=== PATIENT | male | born 1990 | race Two or more races ===

== ENCOUNTER 2017-11-27 15:53 | Observation (INO) | payer OTHER ==
--- NOTE | 2017-11-27 15:57 | PDOC ---
History of Present Illness - General Chief Complaint: Alcohol intoxication Stated Complaint: INTOX Time Seen by Provider: 11/27/17 15:57 History Source: Patient, EMS Exam Limitations: Intoxication - History of Present Illness Initial Comments: 11/27/17 16:16 27 year old male BIBA for intoxication. Per EMS pt [place] side [place] upon arrival, minimally responsive, pt was given narcan without any change in symptoms. Pt states he has taken "marijuana, PCP and crack". Pt does not want to cooperate with medical evaluation. Past History - Past Medical History Allergies/Adverse Reactions: Allergies Allergy/AdvReac Type Severity Reaction Status Date / Time No Known Allergies Allergy Verified 11/27/17 17:16 Home Medications: Ambulatory Orders NK [No Known Home Medication] 11/27/17 Review of Systems - Review of Systems Able to Perform ROS?: No Comments:: 11/27/17 16:17 Pt is intoxicated and does not want to participate with medical evaluation *Physical Exam - Physical Exam Comments: 11/27/17 16:18 Constitutional: Well-nourished, Well-developed, appearing stated age. anxious. walking around the room attempting to pull out his IV. HEENT: head is normocephalic, atraumatic. EOMI. PERRLA. Neck: supple. Full ROM. Heart: regular rhythm. no murmurs, rubs or gallops. Lungs: clear to auscultation bilaterally. no crackles, rhonchi or wheezing. no stridor. Abdomen: soft, nontender. normal bowel sounds. no rebound, guarding, masses. Extremities: Peripheral pulses intact. No lower extremity edema. Neurological: CN 2-12 grossly intact. Moves all four extremities. Psych: awake, alert, oriented x3. Does not follow commands. Answers questions appropriately. aggressive. agitated. ED Treatment Course - LABORATORY CBC & Chemistry Diagram: 11/27/17 17:45 11/27/17 17:45 Medical Decision Making - Medical Decision Making 11/27/17 16:20 27 year old male BIBA for intoxication. Pt is aggressive, walking around the ED, pulled out his IV that was placed by EMS. IM versed 1 mg given. IM haldol 5 mg given. Initial Vital Signs Temp Pulse Resp BP Pulse Ox 97 F L 90 16 150/70 100 11/27/17 16:00 11/27/17 16:00 11/27/17 16:00 11/27/17 16:00 11/27/17 16:00 Afebrile. No tachycardia. No tachypnea. Hypertensive - Likely secondary to agitation No hypoxia on room air. Pending intoxication labs and EKG once patient is calm and cooperative. 11/27/17 17:00 Pt still combative. IM ativan 1 mg given. 11/27/17 17:48 Pt reassessed. Sleeping comfortably. Will arouse to physical stimulation. 11/27/17 18:07 Pt reassessed. Sleeping comfortably. 11/27/17 18:26 CBC WBC 7.4 K/mm3 (4.0-10.0) 11/27/17 17:45 RBC 4.95 M/mm3 (4.00-5.60) 11/27/17 17:45 Hgb 14.6 GM/dL (11.7-16.9) 11/27/17 17:45 Hct 44.1 % (35.4-49) 11/27/17 17:45 MCV 89.1 fl (80-96) 11/27/17 17:45 MCH 29.4 pg (25.7-33.7) 11/27/17 17:45 MCHC 33.0 g/dl (32.0-35.9) 11/27/17 17:45 RDW 14.6 % (11.9-15.9) 11/27/17 17:45 Plt Count 345 K/MM3 (134-434) 11/27/17 17:45 MPV 9.4 fl (7.5-11.1) 11/27/17 17:45 Absolute Neuts (auto) 3.5 K/mm3 (1.5-8.0) 11/27/17 17:45 Neutrophils % 47.4 % (42.8-82.8) 11/27/17 17:45 Lymphocytes % 40.2 % (8-40) H 11/27/17 17:45 Monocytes % 8.5 % (3.8-10.2) 11/27/17 17:45 Eosinophils % 2.5 % (0-4.5) 11/27/17 17:45 Basophils % 1.4 % (0-2.0) 11/27/17 17:45 Nucleated RBC % 0 % (0-0) 11/27/17 17:45 No leukocytosis. No anemia. 11/27/17 19:24 CMP Sodium 142 mmol/L (136-145) 11/27/17 17:45 Potassium 4.0 mmol/L (3.5-5.1) 11/27/17 17:45 Chloride 109 mmol/L (98-107) H 11/27/17 17:45 Carbon Dioxide 26 mmol/L (21-32) 11/27/17 17:45 Anion Gap 7 MMOL/L (8-16) L 11/27/17 17:45 BUN 11 mg/dL (7-18) 11/27/17 17:45 Creatinine 0.7 mg/dL (0.55-1.3) 11/27/17 17:45 Creat Clearance w eGFR > 60 (>60) 11/27/17 17:45 Random Glucose 92 mg/dL (74-106) 11/27/17 17:45 Calcium 9.1 mg/dL (8.5-10.1) 11/27/17 17:45 Magnesium 2.2 mg/dL (1.8-2.4) 11/27/17 17:45 Total Bilirubin 0.2 mg/dL (0.2-1) 11/27/17 17:45 AST 26 U/L (15-37) 11/27/17 17:45 ALT 30 U/L (13-61) 11/27/17 17:45 Alkaline Phosphatase 81 U/L (45-117) 11/27/17 17:45 Total Protein 7.7 g/dl (6.4-8.2) 11/27/17 17:45 Albumin 3.7 g/dl (3.4-5.0) 11/27/17 17:45 No electrolyte imbalances. Normal acetaminophen, salicyclates, no serum ETOH. I signed this patient out to Dr. Sims, who will assume care for the patient while he is in the Emergency Department.
[2017-11-27] MEDS ORDERED: HALOPERIDOL LACTATE 5 MG/ML IM ONE ×2 (16:08→20:20)
[2017-11-27] MEDS ORDERED: LORazepam 2 MG/ML SDV VIAL ONE ×2 (16:09→20:23)
--- NOTE | 2017-11-27 16:20 | PDOC ---
Attending Attestation - Resident Resident Name: Kimber Mc - ED Attending Attestation I have performed the following: I have examined & evaluated the patient, The case was reviewed & discussed with the resident, I agree w/resident's findings & plan, Exceptions are as noted - HPI HPI: 11/27/17 16:20 27yo M with unknown PMH BIBEMS from [facility] after found sleeping on the ground intoxicated. Pt was given narcan with improvement in mental status and transported to the ED. FS 104 per EMS. On arrival to ED, pt clearly intoxicated , ambulating in ED demanding DC. Ripped IV placed by EMS out. Admits to drinking ETOH and using drugs, possibly PCP. Pt continued to be combative, non- redirectable. Security called to the bedside and unable to talk pt down. Pt ordered for 5mg IM haldol and 2mg Ativan. Continued to be combative, refusing to sit in stretcher. Asked us to call his sister but gave us 2 non working phone numbers. Pt given versed 1mg IM with better response. Security watch at bedside, pt asleep and monitored. - Physicial Exam PE: 11/27/17 16:29 GENERAL: Awake, agitated, shouting and walking around ED with steady gait HEAD: No signs of trauma EYES: PERRLA, EOMI, +injected conjunctiva ENT: Oropharynx clear without exudates. Moist mucosa. +AOB NECK: Normal ROM, supple, no lymphadenopathy, JVD, or masses LUNGS: Breath sounds equal, clear to auscultation bilaterally. No wheezes, and no crackles HEART: Regular rate and rhythm, normal S1 and S2, no murmurs, rubs or gallops ABDOMEN: Soft, nontender, normoactive bowel sounds. No guarding, no rebound. No masses EXTREMITIES: Normal range of motion, no edema. No clubbing or cyanosis. No cords, erythema, or tenderness BACK: no midline cervical, thoracic, or lumbar ttp NEUROLOGICAL: Slurred speech, cranial nerves intact, 5/5 strength in all 4 extremities, normal sensation to light touch in all 4 extremities, normal gait, normal tone SKIN: bleeding from IV he removed on dorsum of R hand. Otherwise, warm, Dry, normal turgor, no rashes or lesions noted. - Medical Decision Making 11/27/17 16:47 27yo M with unknown PMH presents to the ED with intoxication due to etoh +/- drugs. FS wnl. Chemically sedated at this time. Will allow to metabolize and reassess when more clinically sober. In the meantime, given lack of hx and no previous records in our system, will check labs. 11/27/17 17:57 Pt sleeping comfortably, vitals wnl 11/27/17 20:21 Pt awake, agitated, still intoxicated, trying to elope, demanding coat Ordered 5mg haldol IM, 2mg ativan IM Security watch continued 11/27/17 20:48 Despite 5/2, pt still compative, aggressive towards staff, demanding DC Decision made to physically restrain pt due to threat to staff 11/27/17 22:02 Given prolonged LOS, continued intoxication, will place pt on ED obs 11/27/17 22:24 Case signed out to Dr. Acosta. PT accepted for admission Case discussed in detail with admitting physician including history, physical exam and ancillary studies. Admitting physician has assumed care for the patient, will follow all pending diagnostics and will complete the evaluation and treatment. Heart Score/ECG Review #1 11/28/17 00:48 Twelve-lead EKG was performed and reviewed by me. Normal sinus rhythm, rate 97. Normal axis. No ST elevations. Probable incomplete right bundle branch block.
[2017-11-27] MEDS ORDERED: MIDAZOLAM HCL 2 MG/2 ML SINGLE DOSE VIAL ONE (16:26)
[2017-11-27 16:27] VITALS: BMI 38.0
[2017-11-27] MEDS ORDERED: MIDAZOLAM HCL 2 MG/2 ML SINGLE DOSE VIAL IM ONE (17:07)
[2017-11-27 18:04] LABS: BASO % 1.4 % (0-2.0); EOS % 2.5 % (0-4.5); HEMATOCRIT 44.1 % (35.4-49); HEMOGLOBIN 14.6 GM/dL (11.7-16.9); LYMPH % 40.2 % (8-40); MCH 29.4 pg (25.7-33.7); MEAN CELL VOLUME 89.1 fl (80-96); MEAN PLT VOLUME 9.4 fl (7.5-11.1); MONO % 8.5 % (3.8-10.2); NEUT % 47.4 % (42.8-82.8); PLATELET COUNT 345 K/MM3 (134-434); RBC 4.95 M/mm3 (4.00-5.60); RDW 14.6 % (11.9-15.9); WHITE BLOOD COUNT 7.4 K/mm3 (4.0-10.0)
[2017-11-27 18:18] LABS: INR 1.03 (0.83-1.09); PROTHROMBIN TIME (PATIENT) 12.1 SEC (9.7-13.0)
[2017-11-27 18:28] LABS: ALBUMIN 3.7 g/dl (3.4-5.0); ALK PHOS 81 U/L (45-117); ANION GAP 7 MMOL/L (8-16); BILIRUBIN,TOTAL 0.2 mg/dL (0.2-1); BLOOD UREA NITROGEN 11 mg/dL (7-18); CALCIUM 9.1 mg/dL (8.5-10.1); CHLORIDE 109 mmol/L (98-107); CO2 26 mmol/L (21-32); CREATININE 0.7 mg/dL (0.55-1.3); GLUCOSE,RANDOM 92 mg/dL (74-106); MAGNESIUM 2.2 mg/dL (1.8-2.4); SGOT/AST 26 U/L (15-37); SGPT/ALT 30 U/L (13-61); SODIUM 142 mmol/L (136-145); TOT PROT 7.7 g/dl (6.4-8.2)
--- NOTE | 2017-11-27 19:36 | PDOC ---
*Physical Exam - Vital Signs Last Vital Signs Temp Pulse Resp BP Pulse Ox 97 F L 90 16 150/70 100 11/27/17 16:00 11/27/17 16:00 11/27/17 16:00 11/27/17 16:00 11/27/17 16:00 - Physical Exam Comments: 11/27/17 19:35 Patient's care endorsed to me by Dr. Mc at the end of her shift. This is a 27 YOM with h/o polysubstance use, who p/w friends called to have him brought to the ED. MJ, PCP, and crack cocaine. Was aggressive, got 1 mg Versed, 5 mg Haldol IM, 1 Ativan IM, labs have resulted essentially normal. Awaiting sobriety and then will re-assess and decide on dispo. ED Treatment Course - LABORATORY CBC & Chemistry Diagram: 11/27/17 17:45 11/27/17 17:45 - ADDITIONAL ORDERS Additional order review: Laboratory Results 11/27/17 11/27/17 17:45 17:45 PT with INR 12.10 INR 1.03 PTT (Actin FS) 31.0 Sodium 142 Potassium 4.0 Chloride 109 H Carbon Dioxide 26 Anion Gap 7 L BUN 11 Creatinine 0.7 Creat Clearance w eGFR > 60 Random Glucose 92 Calcium 9.1 Magnesium 2.2 Total Bilirubin 0.2 AST 26 ALT 30 Alkaline Phosphatase 81 Total Protein 7.7 Albumin 3.7 Salicylates 3.8 Acetaminophen < 2.0 L Alcohol, Quantitative < 3.0 11/27/17 17:45 RBC 4.95 MCV 89.1 MCHC 33.0 RDW 14.6 MPV 9.4 Neutrophils % 47.4 Lymphocytes % 40.2 H Monocytes % 8.5 Eosinophils % 2.5 Basophils % 1.4 - Medications Given in the ED: ED Medications Discontinued Medications Generic Name Dose Route Start Last Admin Trade Name Freq PRN Reason Stop Dose Admin Diphenhydramine HCl 50 mg 11/27/17 16:08 11/27/17 18:47 Benadryl Injection - IVPUSH 11/27/17 16:09 Not Given ONCE ONE Haloperidol 5 mg 11/27/17 16:08 11/27/17 16:12 Haldol Injection (Fast Acting) - IM 11/27/17 16:09 5 mg ONCE ONE Administration Lorazepam 2 mg 11/27/17 16:08 11/27/17 17:16 Ativan Injection - IVPUSH 11/27/17 16:09 Not Given ONCE ONE Lorazepam 1 mg 11/27/17 18:09 11/27/17 16:12 Ativan Injection - IM 11/27/17 18:10 1 mg ONCE ONE Administration Midazolam HCl 1 mg 11/27/17 17:07 11/27/17 16:30 Versed - IM 11/27/17 17:08 1 mg ONCE ONE Administration Medical Decision Making - Medical Decision Making 11/27/17 20:44 Patient walking around, getting increasingly agitated, wants to leave, seen trying to walk out of ambulance bay. Restraints ordered. Laboratory Tests 11/27/17 11/27/17 11/27/17 17:45 17:45 17:45 WBC 7.4 RBC 4.95 Hgb 14.6 Hct 44.1 MCV 89.1 MCH 29.4 MCHC 33.0 RDW 14.6 Plt Count 345 MPV 9.4 Absolute Neuts (auto) 3.5 Neutrophils % 47.4 Lymphocytes % 40.2 H Monocytes % 8.5 Eosinophils % 2.5 Basophils % 1.4 Nucleated RBC % 0 PT with INR 12.10 INR 1.03 PTT (Actin FS) 31.0 Sodium 142 Potassium 4.0 Chloride 109 H Carbon Dioxide 26 Anion Gap 7 L BUN 11 Creatinine 0.7 Creat Clearance w eGFR > 60 Random Glucose 92 Serum Osmolality 289 Calcium 9.1 Magnesium 2.2 Total Bilirubin 0.2 AST 26 ALT 30 Alkaline Phosphatase 81 Total Protein 7.7 Albumin 3.7 Salicylates 3.8 Acetaminophen < 2.0 L Alcohol, Quantitative < 3.0 Dr. Pelletier has spoken with the inpatient admitting team. Decision to Admit order has been placed. The patient is resting comfortably on hospital bed. *DC/Admit/Observation/Transfer Diagnosis at time of Disposition: Agitation, Slurred speech - Discharge Dispostion Condition at time of disposition: Guarded Decision to Admit order: Yes - Referrals - Patient Instructions - Post Discharge Activity
[2017-11-27 20:05] LABS: OSMOLALITY,SERUM 289 mosm/kg (278-305)
[2017-11-27] MEDS ORDERED: HALOPERIDOL LACTATE 5 MG/ML ONE (20:23)
--- NOTE | 2017-11-27 23:17 | HP ---
CHIEF COMPLAINT: found on street intoxicated PCP: none HISTORY OF PRESENT ILLNESS: Pt nonresponsive, s/p 10 mg haloperidol, 3 mg Ativan, and 1 mg versed (all in ED ) unable to obtain history from pt. History taken from previous medical records. Pt is a 27 y/o M with an unknown past medical history. Pt was found on the ground by EMS intoxicated this afternoon in [facility] Blood glucose was 104 per EMS. Pt was given Narcan by EMS and bought to [facility] [place]. Pt subsequently ripped his IV out that was placed by EMS and became combative. Security was notified about pt as pt was unable to calm down. Haldol 10 mg and Ativan 3 mg were given to pt. Pt still was combative so 1 mg midazolam was given. A decision was made to physically restrain the pt as he was threatening ED staff. ER course was notable for: (1) 10 mg haloperidol, 3 mg ativan, 1 mg versed (2) Blood Alcohol WNL (3) Recent Travel: PAST MEDICAL HISTORY: Unable to obtain PAST SURGICAL HISTORY: Unable to obtain Social History: Smoking: unable to obtain Alcohol: unable to obtain Drugs: Pt states he has taken "marijuana, PCP and crack" Family History: Allergies No Known Allergies Allergy (Verified 11/27/17 17:16) HOME MEDICATIONS: Home Medications Medication Instructions Recorded NK [No Known Home Medication] 11/27/17 REVIEW OF SYSTEMS unable to obtain PHYSICAL EXAMINATION Vital Signs - 24 hr 11/27/17 16:00 Temperature 97 F L Pulse Rate 90 Respiratory 16 Rate Blood Pressure 150/70 O2 Sat by Pulse 100 Oximetry (%) Limited exam- Pt nonresponsive, snoring loudly GENERAL: Nonresponsive, HEAD: NC/AT LUNGS: Pt snoring loudly, unable to clearly hear lung sounds . HEART: S1S2 No MRG RRR ABDOMEN: Soft, no masses appreciated. Nondistended. SKIN: No rashes appreciated. Laboratory Results - last 24 hr 11/27/17 11/27/17 11/27/17 17:45 17:45 17:45 WBC 7.4 RBC 4.95 Hgb 14.6 Hct 44.1 MCV 89.1 MCH 29.4 MCHC 33.0 RDW 14.6 Plt Count 345 MPV 9.4 Absolute Neuts (auto) 3.5 Neutrophils % 47.4 Lymphocytes % 40.2 H Monocytes % 8.5 Eosinophils % 2.5 Basophils % 1.4 Nucleated RBC % 0 PT with INR 12.10 INR 1.03 PTT (Actin FS) 31.0 Sodium 142 Potassium 4.0 Chloride 109 H Carbon Dioxide 26 Anion Gap 7 L BUN 11 Creatinine 0.7 Creat Clearance w eGFR > 60 Random Glucose 92 Serum Osmolality 289 Calcium 9.1 Magnesium 2.2 Total Bilirubin 0.2 AST 26 ALT 30 Alkaline Phosphatase 81 Total Protein 7.7 Albumin 3.7 Salicylates 3.8 Acetaminophen < 2.0 L Alcohol, Quantitative < 3.0 ASSESSMENT/PLAN: Pt nonresponsive, s/p 10 mg haloperidol and 3 mg Ativan, unable to obtain history from pt. History taken from previous medical records. Pt is a 27 y/o M with an unknown past medical history. Pt was found on the ground by EMS intoxicated this afternoon. #Substance Abuse/Intoxication -Alcohol level WNL. Normal acetaminophen, salicyclates, no serum ETOH. -Clinical presentation most likely 2/2 PCP abuse -Physical restraints -Sedation for agitation prn -CK, Urine Myoglobin level to r/o rhabdomyolysis -HOB elevation -Fall risk precautions -Chest Xray--R/o aspiration pneumonia as pt at increased risk. -thiamine -folate #FEN LR@100cc/hr Monitor Electrolytes NPO DVT ppx: Heparin TID Dispo: Obs Visit type - Emergency Visit Emergency Visit: Yes ED Registration Date: 11/27/17 Care time: The patient presented to the Emergency Department on the above date and was hospitalized for further evaluation of their emergent condition. - New Patient This patient is new to me today: Yes Date on this admission: 11/28/17 - Critical Care Critical Care patient: No
[2017-11-28] MEDS ORDERED: LACTATED RINGERS SOLUTION 1,000 ML/1,000 ML INFUS.BAG IV SCH (05:00)
--- NOTE | 2017-11-28 05:00 | PN ---
Teaching Attending Note Name of Resident: Jone Lopes ATTENDING PHYSICIAN STATEMENT I saw and evaluated the patient. Chart, data, imaging reviewed. I reviewed the resident's note and discussed the case with the resident. I agree with the resident's findings and plan as documented. SUBJECTIVE: History obtained from EMR as patient was sedated. 27yo M with unknown PMH BIBEMS from [facility] after found sleeping on the ground intoxicated. Pt was given narcan with improvement in mental status and transported to the ED. FS 104 per EMS. On arrival to ED, pt clearly intoxicated , ambulating in ED demanding DC. Admitted to drinking ETOH and using drugs, possibly PCP. Pt continued to be combative, non-redirectable. Received haldol, ativan, versed and was sedated successfully. OBJECTIVE: Last Vital Signs Temp Pulse Resp BP Pulse Ox 97 F L 90 16 150/70 100 11/27/17 16:00 11/27/17 16:00 11/27/17 16:00 11/27/17 16:00 11/27/17 16:00 general- sedated, unresponsive heent - perrla, clear sclera cv-s1+s2+rrr chest clear b/l abdomen- soft, nt Abnormal Lab Results 11/27/17 11/27/17 17:45 17:45 Lymphocytes % 40.2 H Chloride 109 H Anion Gap 7 L Acetaminophen < 2.0 L ekg -reviewed, nsr ASSESSMENT AND PLAN: #27yo man with polysubstance abuse, acutely intoxicated with unknown substances , likely PCP as he admitted to it. -tele/observation -urine toxicology screen -IV fluid hydration -cxr to r/o possible aspiration -bed rest -fall precautions -thiamine -folate -multivitamin -NPO for now -Check CK to r/o rhabdo -heparin sc for dvt ppx
[2017-11-28] MEDS ORDERED: HEPARIN NA (PORCINE) 5,000 UNITS/ML 1ML VIAL SQ SCH (06:00)
[2017-11-28 06:16] LABS: BASO % 1.1 % (0-2.0); HEMATOCRIT 45.6 % (35.4-49); HEMOGLOBIN 14.6 GM/dL (11.7-16.9); LYMPH % 33.6 % (8-40); MCH 28.9 pg (25.7-33.7); MCHC 32.1 g/dl (32.0-35.9); MEAN CELL VOLUME 90.1 fl (80-96); MEAN PLT VOLUME 9.3 fl (7.5-11.1); MONO % 10.8 % (3.8-10.2); NEUT % 51.5 % (42.8-82.8); PLATELET COUNT 343 K/MM3 (134-434); RBC 5.06 M/mm3 (4.00-5.60); RDW 14.5 % (11.9-15.9); WHITE BLOOD COUNT 7.5 K/mm3 (4.0-10.0)
[2017-11-28] MEDS ORDERED: HEPARIN NA (PORCINE) 5,000 UNITS/ML 1ML VIAL ONE (06:22)
[2017-11-28 06:29] LABS: INR 1.08 (0.83-1.09); PROTHROMBIN TIME (PATIENT) 12.7 SEC (9.7-13.0)
[2017-11-28 06:32] LABS: ACTIVATED PTT 32.1 SECONDS (25.2-36.5)
[2017-11-28 06:41] LABS: ANION GAP 8 MMOL/L (8-16); BLOOD UREA NITROGEN 10 mg/dL (7-18); CALCIUM 8.9 mg/dL (8.5-10.1); CHLORIDE 110 mmol/L (98-107); CO2 24 mmol/L (21-32); CREATININE 0.7 mg/dL (0.55-1.3); GLUCOSE,RANDOM 92 mg/dL (74-106); PHOSPHOROUS 3.2 mg/dL (2.5-4.9); POTASSIUM 4.1 mmol/L (3.5-5.1); SODIUM 142 mmol/L (136-145)
[2017-11-28 06:49] VITALS: BP 131/77; PULSE 86; TEMP 98.4
[2017-11-28 07:58] LABS: ANION GAP 4 MMOL/L (8-16); BLOOD UREA NITROGEN 9 mg/dL (7-18); CALCIUM 9.3 mg/dL (8.5-10.1); CHLORIDE 108 mmol/L (98-107); CO2 26 mmol/L (21-32); CREATININE 0.7 mg/dL (0.55-1.3); GLUCOSE,RANDOM 94 mg/dL (74-106); MAGNESIUM 2.2 mg/dL (1.8-2.4); PHOSPHOROUS 3.2 mg/dL (2.5-4.9); POTASSIUM 4.1 mmol/L (3.5-5.1); SODIUM 138 mmol/L (136-145)
[2017-11-28] MEDS ORDERED: FOLIC ACID 1 MG TABLET (FP) PO SCH (10:00)
[2017-11-28] MEDS ORDERED: THIAMINE HCL 100 MG TABLET (FP) PO SCH (10:00)
--- NOTE | 2017-11-28 13:08 | PN ---
Teaching Attending Note Name of Resident: Carmine Clancy ATTENDING PHYSICIAN STATEMENT I reviewed the resident's note and discussed the case with the resident. I agree with the resident's findings and plan as documented. Pt signed out AMA prior to seeing the patient
--- NOTE | 2017-11-28 21:26 | EKG ---
Test Reason : Blood Pressure : / mmHG Vent. Rate : 097 BPM Atrial Rate : 097 BPM P-R Int : 146 ms QRS Dur : 076 ms QT Int : 360 ms P-R-T Axes : 039 066 051 degrees QTc Int : 457 ms NORMAL SINUS RHYTHM WITH SINUS ARRHYTHMIA NONSPECIFIC ST AND T WAVE ABNORMALITY ABNORMAL ECG NO PREVIOUS ECGS AVAILABLE Confirmed by DECLAN SOSA MD ([id number]) on 11/28/2017 9:26:17 PM Referred By: Confirmed By:DECLAN SOSA MD
== END 2017-11-28 07:56 | disposition left against medical advice (07) ==
LOC: JER 15:53 → JERBED 22:03 → INTOOBSV 22:03
PROVIDERS: ADMIT Internal Medicine; ATTEND Internal Medicine
PROC: 3E023NZ Introduction of Analgesics, Hypnotics, Sedatives into Muscle, Percutaneous Approach (ICD-10-PCS; principal; 2017-11-27)
PROC: 3E023GC Introduction of Other Therapeutic Substance into Muscle, Percutaneous Approach (ICD-10-PCS; 2017-11-27)
PROC: 3E013GC Introduction of Other Therapeutic Substance into Subcutaneous Tissue, Percutaneous Approach (ICD-10-PCS; 2017-11-27)
PROC: 3E0337Z Introduction of Electrolytic and Water Balance Substance into Peripheral Vein, Percutaneous Approach (ICD-10-PCS; 2017-11-27)
DX: F10.129 Alcohol abuse with intoxication, unspecified (principal); R47.81 Slurred speech; R45.1 Restlessness and agitation
CPT/HCPCS: 36415; 71045-TC-FY; 80048; 80053; 80307; 82550; 82553; 83735; 83930; 84100; 85025; 85610; 85730; 93005; 93010; 96372; 99282-25; G0378; J1644